=== PATIENT | female | born 1960 | race Caucasian/White ===

== ENCOUNTER 2024-04-06 13:54 | Emergency (ER) | payer SELFPAY ==
[2024-04-06] MEDS ORDERED: Penicillin V Potassium 250 MG Tab ONE (15:00)
[2024-04-06 15:02] LABS: INFLUENZA A NAA NEGATIVE (NEGATIVE); INFLUENZA B NAA NEGATIVE (NEGATIVE); RESPIRATORY SYNCYTIAL VIR NAA NEGATIVE (NEGATIVE)
[2024-04-06 15:11] LABS: CORONAVIRUS COVID-19 NAA NEGATIVE (NEGATIVE)
[2024-04-06] MEDS: Ketorolac 30 MG/ML SDV IM ONE (15:17)
== END 2024-04-06 15:20 | disposition home or self-care (01) ==
LOC: LB.ED 13:54
DX: J02.0 Streptococcal pharyngitis (principal); Z88.5 Allergy status to narcotic agent; Z88.6 Allergy status to analgesic agent
CPT/HCPCS: 0241U; 87651; 96372; 99284; A9270; J1885